=== PATIENT | female | born 1935 | race Caucasian/White ===

== ENCOUNTER 2016-10-13 15:06 | Outpatient (CLI) | payer OTHER, MEDICARE ==
[~2016-10-13 15:06] MED LIST: AMLODIPINE BESYL5 MG PO; ASPIRIN ADULT L81 MG PO; CALCIUM CARBON500 MG PO; CLARITIN REDITAB5 MG PO; CLARITIN10 M1 PO; COLACE100 MG PO; COREG25 MG PO; FLAX SEED OIL PO; FLOVENT DISKUS50 MCG IN; GLUCOSE TEST STRIPS; HYDROCHLOROTH12.5 M1 PO; LISINOPRIL40 MG PO; METFORMIN HCL500 MG PO; MIRALAX EQUIVAL17 GM PO; NITROSTAT0.4 MG SL; OMEGA 31000 MG PO; OMEPRAZOLE40 MG PO; SIMVASTATIN10 MG PO; SIMVASTATIN20 MG PO; VENTOLIN HFA IN; VERAPAMIL HCL360 MG PO; VITAMIN C500 M1 PO; VITAMIN E; [UNRECOGNIZED DRUG - SUPPLY]
== END 2016-10-13 23:00 ==
LOC: RT SRH 15:06
DX: R06.02 Shortness of breath (principal)